=== PATIENT | male | born 1965 | race Caucasian/White ===

== ENCOUNTER → 2018-08-31 | Outpatient (CLI) | payer OTHER ==
--- NOTE | 2018-08-31 14:44 | PCVCIMAG ---
APPROVED REPORT Study performed: 08/31/2018 13:07:23 Exam: Stress Echocardiogram Indication: Abnormal calcium score, pre op for procedure Patient Location: Echo lab Stress Nurse: Wendy Green RN Status: routine Ht: 6 ft 0 in HR: 77 bpm BP: 130/70 mmHg Rhythm: NSR Medical History Medical History: Abnormal calcium score Procedure The patient underwent an Exercise Stress Test using the Dom Protocol. Blood pressure, heart rate, and EKG were monitored. An Echocardiogram was performed by page technician in four stages in quad fashion. At peak stress, four selected images were obtained and placed side by side with resting images for comparison. Stress Test Details Stress Test: Exercise stress testing was performed using a Dom protocol. HR Resting HR: 77 bpmMax Heart Rate (APMHR): 165 bpm Max HR Achieved: 190 bpmTarget HR (85% APMHR): 140 bpm % of APMHR: 115 Recovery HR: 144 bpm HR response to stress: Normal HR response to stress BP Resting BP: 130/70 mmHg Max BP: 180/70 mmHg ECG Resting ECG: Sinus Rhythm Stress ECG: Sinus Rhythm Arrhythmia: VPC's Recovery ECG: Sinus Rhythm Recovery Arrhythmia: VPC Clinical Reason for Termination: Maximal effort Exercise duration: 13 min sec Highest Stage Achieved: Stage 4: 4.2 mph at 16% grade. Exercise capacity: 17.20 METs Overall Exercise Capacity for Age: Good Pre-Stress Echo The resting Echocardiogram showed normal left ventricular contractility with an estimated Ejection Fraction of about 55-60%. Normal wall motion in all segments on baseline images. Post-Stress Echo The stress Echocardiogram showed normal left ventricular contractility with an estimated Ejection Fraction of about 60-65%. Normal augmentation of wall motion in all segments on post stress images. Clinical No clinical or ECG evidence for ischemia. Conclusion Clinical Response: Non-ischemic Exercise Capacity: Superior Stress ECG Response: Non-ischemic Stress Echo Images: Non-ischemic The left ventricle is normal in size and wall thickness in both the rest and stress images. Mild prolapse of the anterior mitral leaflet. Trivial mitral regurgitation. Other Information Study Quality: Good <Conclusion> The left ventricle is normal in size and wall thickness in both the rest and stress images. Mild prolapse of the anterior mitral leaflet. Trivial mitral regurgitation.
== END | disposition home or self-care (01) ==
LOC: PCVCIMAG 13:37
PROVIDERS: ATTEND Internal Medicine Cardiovascular Disease
DX: Z01.818 Encounter for other preprocedural examination (principal); R06.09 Other forms of dyspnea; R93.1 Abnormal findings on diagnostic imaging of heart and coronary circulation
CPT/HCPCS: 93325; 93351